=== PATIENT | male | born 1965 ===

== ENCOUNTER 2019-02-09 05:37 | Outpatient (CLI) | payer BC ==
[~2019-02-09] VITALS: Ht 175.3 cm; Wt 98.6 kg
== END 2019-02-09 15:47 | disposition home or self-care (01) ==
LOC: PREOP 05:37
PROVIDERS: ATTEND Surgery
DX: Z01.818 Encounter for other preprocedural examination (principal)

== ENCOUNTER → 2019-02-16 | Day surgery (SDC) | payer BC ==
[~2019-02-16] VITALS: Ht 175.3 cm; Wt 98.6 kg
[2019-02-16] VITALS (9 sets, daily range): BP systolic 112–128; BP diastolic 70–93
[~2019-02-16] MED LIST: HURRICAINE EXT TUBE (BENZOCAINE) XX PRN; LACTATED RINGERS 1,000 ML IV STA; MIDAZOLAM 2 MG/2 ML (VERSED) VIAL ONE; PANT40TA2 PO; SUCR1TAB36 PO; proPOfol 200 MG/20 ML (DIPRIVAN) VIAL IV ONE
--- NOTE | 2019-02-16 09:57 | Progress Note-Pre Operative ---
Pre-Operative Progress Note H&P Reviewed The H&P was reviewed, patient examined and no changes noted. Date Seen by Provider: Feb 16, 2019 Time Seen by Provider: 09:56 Date H&P Reviewed: Feb 16, 2019 Time H&P Reviewed: 09:56 Pre-Operative Diagnosis: dysphagia, gerd VELIA DYER DO Feb 16, 2019 09:57
--- NOTE | 2019-02-16 10:43 | Progress Note-Post Operative ---
Post-Operative Progess Note Surgeon (s)/Client Technical Professional (s) Surgeon VELIA DYER DO Client Technical Professional: na Pre-Operative Diagnosis dysphagia, gerd Post-Operative Diagnosis hital hernia, healing ulcer ge Procedure & Operative Findings Date of Procedure 02/16/19 Procedure Performed/Findings egd c biopsies Anesthesia Type per continuity person Estimated Blood Loss Estimated blood loss (mL): scant Specimens/Packing Specimens Removed antrum, ge VELIA DYER DO Feb 16, 2019 10:43
--- NOTE | 2019-02-16 10:46 | Discharge Inst-Simple/Standard ---
Discharge Inst-Standard Discharge Medications New, Converted or Re-Newed RX: Transmitted to Pharmacy Patient Instructions/Follow Up Plan of Care/Instructions/FU: 2-3 weeks Danielle Activity as Tolerated: Yes Discharge Diet: Regular Diet VELIA DYER DO Feb 16, 2019 10:46
--- NOTE | 2019-02-16 14:25 | Anesthesia-General Post-Op ---
MAC Patient Condition Mental Status/LOC: Same as Preop Cardiovascular: Satisfactory Nausea/Vomiting: Absent Respiratory: Satisfactory Pain: Controlled Complications: Absent Post Op Complications Complications None Follow Up Care/Instructions Patient Instructions None needed. Anesthesiology Discharge Order Discharge Order Patient is doing well, no complaints, stable vital signs, no apparent adverse anesthesia problems. No complications reported per nursing. REBECCA HUANG CRNA Feb 16, 2019 14:25
--- NOTE | 2019-02-16 15:42 | OPERATIVE REPORT ---
DATE OF SERVICE: 02/16/2019 PREOPERATIVE DIAGNOSES: Dysphagia, gastroesophageal reflux disease. POSTOPERATIVE DIAGNOSES: Hiatal hernia, healing ulcer at the gastroesophageal junction. PROCEDURE: EGD with biopsies. SURGEON: Velia Santos DO ANESTHESIA: Per POACHER WRINGER OPERATOR. ESTIMATED BLOOD LOSS: Scant. COMPLICATIONS: None. INDICATIONS: The patient is a 53-year-old male with dysphagia and GERD. He understands risks and benefits of procedure and wished to proceed with procedure. Consent was signed in the chart. DESCRIPTION OF PROCEDURE: The patient was taken to the endoscopy suite, placed in left lateral recumbent position. Timeout was performed. Scope was inserted in mouth, down the esophagus. GE junction noticed healing GE ulcer. Scope was then continued slowly inserted into the stomach where it was further insufflated and through the stomach and into the duodenum without difficulty. There were no polyps, masses or ulcerations or erythematous changes within the duodenum. Scope was then slowly retracted back into the stomach, which was further insufflated. Biopsy of the antrum was obtained. No polyps, masses or ulcerations. Scope was retroflexed noting a small hiatal hernia, no other pathology noted. Scope was returned to its normal position, slowly withdrawn to the distal esophagus, which had erythematous changes and evidence of a healing ulcer at the GE junction. Biopsies of the GE junction were obtained. Scope was then slowly retracted back noting no other pathology. Scope was slowly retracted back to completely remove noting no other pathology. RECOMMENDATIONS: The patient will be started on Protonix and a Carafate. We will have him follow up on his biopsies and further recommendations pending these results. Job ID: [id number] DocumentID: [id number] Dictated Date: 02/16/2019 10:50:23 Rnfa Date: 02/16/2019 15:41:03 Dictated By: VELIA SANTOS DO
== END ==
LOC: ENDO 08:34
PROVIDERS: ATTEND Surgery
DX: K21.0 Gastro-esophageal reflux disease with esophagitis (principal); K44.9 Diaphragmatic hernia without obstruction or gangrene; K25.9 Gastric ulcer, unspecified as acute or chronic, without hemorrhage or perforation; E66.9 Obesity, unspecified; Z68.32 Body mass index [BMI] 32.0-32.9, adult; Z79.899 Other long term (current) drug therapy